=== PATIENT | male | born 1985 | race Caucasian/White ===

== ENCOUNTER 2020-03-09 19:16 | Emergency (ER) | payer BC ==
[~2020-03-09] VITALS: Ht 182.9 cm; Wt 68.0 kg
[2020-03-09 19:24] VITALS: BP 131/88
--- NOTE | 2020-03-09 19:36 | NUR ---
AT BEDSIDE FOR EVAL
--- NOTE | 2020-03-09 19:43 | NUR ---
Patient discharged to home in stable condition. Written and verbal after care instructions given. Patient verbalizes understanding of instruction.
== END 2020-03-09 19:43 | disposition home or self-care (01) ==
LOC: ER 19:23
DX: H20.9 Unspecified iridocyclitis (principal)